=== PATIENT | male | born 1995 | race Caucasian/White ===

== ENCOUNTER 2017-01-27 21:13 | Emergency (ER) | payer OTHER ==
[2017-01-27 21:17] VITALS: BP 134/72
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
== END 2017-01-27 22:18 | disposition home or self-care (01) ==
LOC: LL.ED 21:13
DX: K01.1 Impacted teeth (principal); F31.9 Bipolar disorder, unspecified; F17.210 Nicotine dependence, cigarettes, uncomplicated; Z90.49 Acquired absence of other specified parts of digestive tract; Z98.890 Other specified postprocedural states; Z88.0 Allergy status to penicillin
CPT/HCPCS: 99283

== ENCOUNTER 2017-03-08 09:36 | Emergency (ER) | payer OTHER ==
[2017-03-08 09:54] VITALS: BP 128/77
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
[2017-03-08] MEDS ORDERED: ARIPiprazole 10 MG Tab PO ONE (10:17)
[2017-03-08] MEDS ORDERED: LORazepam 1 MG Tab PO ONE (10:17)
== END 2017-03-08 10:35 | disposition home or self-care (01) ==
LOC: LL.ED 09:36
DX: F41.8 Other specified anxiety disorders (principal); K01.1 Impacted teeth; F19.90 Other psychoactive substance use, unspecified, uncomplicated; F17.210 Nicotine dependence, cigarettes, uncomplicated; Z71.6 Tobacco abuse counseling; Z88.0 Allergy status to penicillin; Z91.030 Bee allergy status; Z79.899 Other long term (current) drug therapy; Z90.49 Acquired absence of other specified parts of digestive tract
CPT/HCPCS: 99284; A9270

== ENCOUNTER 2017-03-19 10:50 | Emergency (ER) | payer OTHER ==
[2017-03-19] MEDS ORDERED: Ketorolac 60 MG/2 ML SDV IM ONE (11:00)
[2017-03-19 11:27] VITALS: BP 119/79
[2017-03-19] MEDS ORDERED: predniSONE 20 MG Tab PO ONE (11:51)
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
[2017-03-20] MEDS ORDERED: predniSONE 20 MG Tab PO ONE (11:51)
== END 2017-03-19 12:29 | disposition home or self-care (01) ==
LOC: LL.ED 10:50
DX: M54.41 Lumbago with sciatica, right side (principal); M19.90 Unspecified osteoarthritis, unspecified site; F31.9 Bipolar disorder, unspecified; F41.9 Anxiety disorder, unspecified; F17.210 Nicotine dependence, cigarettes, uncomplicated; Z88.0 Allergy status to penicillin; Z91.030 Bee allergy status; Z90.49 Acquired absence of other specified parts of digestive tract; Z79.899 Other long term (current) drug therapy
CPT/HCPCS: 72100; 96372; 99283; A9270; J1885

== ENCOUNTER 2018-05-08 21:05 | Emergency (ER) | payer OTHER ==
--- NOTE | 2018-05-08 21:20 | EDM.PDOC ---
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 Current Visit: No Onset Date: ~05/08/18 Annotation/Comment:: No nausea or emesis prior to discharge. IV fluids given as above. Symptomatic relief as per discharge instructions. Qualifiers: Vomiting type: unspecified Vomiting Intractability: non-intractable Qualified Code(s): R11.2 - Nausea with vomiting, unspecified (8) Peptic reflux disease SNOMED Code(s): 971288808 Code(s): K21.9 - GASTRO-ESOPHAGEAL REFLUX DISEASE WITHOUT ESOPHAGITIS Status: Chronic Priority: Medium Current Visit: No Annotation/Comment:: High-dose IV Pepcid and IV Protonix given as GI prophylaxis with no true abdominal pain at this time or prior to arrival. (9) Illicit drug use, continuous SNOMED Code(s): 456553621 Code(s): F19.90 - OTHER PSYCHOACTIVE SUBSTANCE USE, UNSPECIFIED, UNCOMPLICATED Status: Chronic Priority: High Current Visit: No Annotation/Comment:: He was strongly encouraged to discontinue all illicit and alcohol use ABDI since this aggravates his current decompensated mixed anxiety and depression disorder. Patient does have a follow-up appointment for his substance abuse tomorrow as above. Note history of continued IV drug use including previous history of hepatitis C. (10) Tobacco abuse counseling SNOMED Code(s): 552178733, 647673543, 919659631 Code(s): Z71.6 - TOBACCO ABUSE COUNSELING Status: Chronic Priority: Medium Current Visit: No Annotation/Comment:: Tobacco cessation once again strongly encouraged with information provided. This should be initiated with his psychiatric and substance abuse treatment as above (11) Hyponatremia SNOMED Code(s): 13663733 Code(s): E87.1 - HYPO-OSMOLALITY AND HYPONATREMIA Status: Chronic Priority: Medium Current Visit: No Onset Date: 05/08/18 Annotation/Comment :: IV lactated Ringer's given as above. - Problem List Review Problem List Initiated/Reviewed/Updated: Yes - My Orders Last 24 Hours: My Active Orders 05/08/18 21:21 Peripheral IV Care [RC] . DIRECTED Abdomen Series w Chest 1V [CR] Stat CULTURE URINE [RM] Stat H PYLORI STOOL ANTIGEN [MREF] Urgent UA W/MICROSCOPIC [URIN] Stat Sodium Chloride 0.9% [Saline Flush] 10 ml FLUSH ASDIRECTED PRN Blood Culture x2 Reflex Set [OM.PC] Urgent Obtain Past Medical Record [OM.PC] Urgent Peripheral IV Insertion Adult [OM.PC] Stat Resuscitation Status Stat 05/08/18 21:25 CULTURE STREP A CONFIRMATION [RM] Stat STREP SCRN A RAPID W CULT CONF [RM] Stat 05/08/18 21:30 CULTURE BLOOD [BC] Stat 05/08/18 21:31 Cardiac Monitoring [RC] . DIRECTED 05/08/18 21:36 CULTURE BLOOD [BC] Stat 05/08/18 22:01 DRUG SCREEN, URINE [URCHEM] Stat 05/08/18 Breakfast Nothing Per Oral Diet [DIET] - Assessment/Plan Last 24 Hours: My Active Orders 05/08/18 21:21 Peripheral IV Care [RC] . DIRECTED Abdomen Series w Chest 1V [CR] Stat CULTURE URINE [RM] Stat H PYLORI STOOL ANTIGEN [MREF] Urgent UA W/MICROSCOPIC [URIN] Stat Sodium Chloride 0.9% [Saline Flush] 10 ml FLUSH ASDIRECTED PRN Blood Culture x2 Reflex Set [OM.PC] Urgent Obtain Past Medical Record [OM.PC] Urgent Peripheral IV Insertion Adult [OM.PC] Stat Resuscitation Status Stat 05/08/18 21:25 CULTURE STREP A CONFIRMATION [RM] Stat STREP SCRN A RAPID W CULT CONF [RM] Stat 05/08/18 21:30 CULTURE BLOOD [BC] Stat 05/08/18 21:31 Cardiac Monitoring [RC] . DIRECTED 05/08/18 21:36 CULTURE BLOOD [BC] Stat 05/08/18 22:01 DRUG SCREEN, URINE [URCHEM] Stat 05/08/18 Breakfast Nothing Per Oral Diet [DIET] Assessment:: As above Plan: As above. Extensive precautions were given to the patient, who is in agreement with the treatment plan. See Patient Instructions for further treatment and plan.
[2018-05-08] MEDS ORDERED: Ondansetron 4 MG/2 ML SDV IVPUSH ONE (21:21)
[2018-05-08] MEDS ORDERED: Famotidine 20 MG/2 ML SDV IVPUSH ONE (21:21)
[2018-05-08] MEDS ORDERED: Lactated Ringers 1,000 ML IV ONE (21:21)
[2018-05-08] MEDS ORDERED: Pantoprazole 40 MG Vial IVPUSH ONE (21:21)
[2018-05-08] MEDS: Sodium Chloride 0.9% 10 ML Syringe FLUSH PRN ×2 (21:44→21:48)
[2018-05-08] MEDS ORDERED: Metoprolol Tartrate 5 MG/5 ML SDV IVPUSH ONE (22:07)
[2018-05-08] MEDS ORDERED: Metoprolol Tartrate 50 MG Tab PO ONE (22:07)
[2018-05-08 22:13] LABS: CHLORIDE,CL 97 mmol/L (98-107); SODIUM,NA 134 mmol/L (136-145)
[2018-05-08] MEDS ORDERED: Ibuprofen 600 MG Tab PO ONE (22:16)
[2018-05-08] MEDS ORDERED: Oseltamivir 75 MG Cap PO ONE (22:24)
[2018-05-08] MEDS ORDERED: Magnesium Oxide 400 MG Tab PO ONE (22:26)
[2018-05-08 22:53] VITALS: BP 122/53
== END 2018-05-08 23:06 | disposition home or self-care (01) ==
LOC: LL.ED 21:05
DX: J10.1 Influenza due to other identified influenza virus with other respiratory manifestations (principal); E86.0 Dehydration; K21.9 Gastro-esophageal reflux disease without esophagitis; R00.0 Tachycardia, unspecified; E83.42 Hypomagnesemia; R79.89 Other specified abnormal findings of blood chemistry; F41.8 Other specified anxiety disorders; F19.90 Other psychoactive substance use, unspecified, uncomplicated; Z71.6 Tobacco abuse counseling; E87.1 Hypo-osmolality and hyponatremia; F17.210 Nicotine dependence, cigarettes, uncomplicated; Z91.030 Bee allergy status; Z88.0 Allergy status to penicillin; Z79.899 Other long term (current) drug therapy
CPT/HCPCS: 36415; 74022; 80053; 82150; 83605; 83690; 83735; 84550; 85025; 85610; 85730; 87040; 87081; 87430; 87804; 96361; 96374; 96375; 99284; A9270; C9113; G0480; J2405; J3490; J7050; J7120

== ENCOUNTER 2018-10-17 05:19 | Emergency (ER) | payer MEDICAID, OTHER ==
[2018-10-17 06:02] VITALS: BP 134/82
[2018-10-17] MEDS ORDERED: LORazepam 1 MG Tab PO ONE (06:03)
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
== END 2018-10-17 06:35 | disposition home or self-care (01) ==
LOC: LL.ED 05:19
DX: F41.8 Other specified anxiety disorders (principal); K21.9 Gastro-esophageal reflux disease without esophagitis; Z71.6 Tobacco abuse counseling; F17.210 Nicotine dependence, cigarettes, uncomplicated; F31.9 Bipolar disorder, unspecified; F41.9 Anxiety disorder, unspecified; Z91.030 Bee allergy status; Z88.0 Allergy status to penicillin
CPT/HCPCS: 99283; A9270-GY